=== PATIENT | female | born 1970 | race Two or more races ===

== ENCOUNTER 2020-11-22 14:58 | Emergency (ER) | payer MEDICAID ==
[~2020-11-22] VITALS: Ht 162.6 cm; Wt 86.2 kg
[2020-11-22 16:11] LABS: Basophils # (auto) 0.1 10 ^3/uL (0-0.2); Eosinophils # (auto) 0.1 10 ^3/uL (0-0.8); Monocytes # (auto) 0.7 10 ^3/uL (0-1.3)
[2020-11-22 16:12] LABS: Hematocrit 21.3 % (36.0-46.0); Lymphocytes # (auto) 1.3 10 ^3/uL (0.4-5.4); Lymphocytes % (auto) 15.9 % (10.0-50.0); Mean Corpuscular Hemoglobin 17.2 pg (28.0-32.0); Mean Corpuscular Hgb Conc. 27.9 g/dL (32.0-36.0); Mean Corpuscular Volume 61.6 fL (80.0-100.0); Monocytes % (auto) 8.1 % (0.0-12.0); Nucleated Red Blood Cells % 0.1 %; Platelet Count (auto) 359 10^3/uL (140-450); Red Blood Cells 3.46 10^6/uL (4.0-5.20); White Blood Cell 8.1 10^3/uL (4.4-10.8)
[2020-11-22 16:33] LABS: Albumin 3.2 g/dL (3.4-5.0); Calcium 8.6 mg/dL (8.5-10.1); Potassium 3.9 mmol/L (3.5-5.1)
[2020-11-22 16:35] LABS: Red Cell Distribution Width 20.5 % (11.8-14.3)
[2020-11-22 16:38] LABS: BUN/Creatinine Ratio 7.2; Bilirubin, Total 0.4 mg/dL (0.2-1.0); Total Protein 7.2 g/dL (6.4-8.2)
[2020-11-22 18:54] LABS: INR 1.05 (0.9-1.15); Partial Thromboplastin Time 24.8 sec (23.0-31.2)
[2020-11-22 21:10] VITALS: BP 125/78
[2020-11-22 23:15] VITALS: BP 132/73
[2020-11-22 23:34] VITALS: BP 125/63
[2020-11-23 00:58] VITALS: BP 110/65
[2020-11-23 01:15] VITALS: BP 132/78
== END 2020-11-23 02:00 | disposition home or self-care (01) ==
LOC: ER 15:01
DX: D64.9 Anemia, unspecified (principal); R07.9 Chest pain, unspecified; F41.9 Anxiety disorder, unspecified; F32.9 Major depressive disorder, single episode, unspecified
CPT/HCPCS: 36415; 36430; 71045; 74176; 76856; 80053; 83690; 83735; 85025; 85610; 85730; 86850; 86900; 86901; 86920; 99285; P9016

== ENCOUNTER 2023-11-29 08:26 | Inpatient (IN) | payer MEDICAID ==
[~2023-11-29] VITALS: Ht 162.6 cm; Wt 84.3 kg
[~2023-11-29 08:26] MED LIST: ACET-1304 PO; GABA-1308 PO; IBUP-1456 PO; OMEP20TA PO
[2023-11-29] MEDS ORDERED: ONDANSETRON HCL 4 MG/2 ML VIAL ONE (08:50)
[2023-11-29] MEDS ORDERED: PROPOFOL 10 MG/ML 20 ML IV ONE ×2 (08:51→11:58)
[2023-11-29] MEDS ORDERED: KETOROLAC TROMETH 30 MG/ML 1ML VIAL ONE (08:51)
[2023-11-29] MEDS ORDERED: LIDOCAINE 1% INJ PF 5ML AMP ONE (08:51)
[2023-11-29] MEDS ORDERED: DexAMETHasone SOD PHOS 10MG/1ML VIAL INJ ONE ×2 (08:51→11:56)
[2023-11-29] MEDS ORDERED: GLYCOPYRROLATE 0.2 MG/ML 1ML VIAL ONE (08:51)
[2023-11-29] MEDS ORDERED: KETAMINE 50mg/ML 1ml syringe ONE (08:51)
[2023-11-29] MEDS: ACETAMINOPHEN IV 1000 MG/100ML (10MG/ML) IV ONE (09:45)
[2023-11-29] MEDS: CELECOXIB 100 MG CAP ONE (09:46)
[2023-11-29] MEDS: ACETAMINOPHEN IV 100 ML IV ONE (09:46)
[2023-11-29] MEDS: GABAPENTIN 400 MG CAP ONE (09:46)
[2023-11-29] MEDS: CELECOXIB 100 MG CAP PO ONE (09:50)
[2023-11-29] MEDS: GABAPENTIN 400 MG CAP PO ONE (09:50)
[2023-11-29] MEDS: TRANEXAMIC ACID 20 ML ONE (10:03)
[2023-11-29] MEDS: VANCOMYCIN HCL 1000 MG VL ONE (11:44)
[2023-11-29] MEDS ORDERED: ePHEDrine SULFATE 50 MG/ML AMP ONE (11:47)
[2023-11-29] MEDS ORDERED: fentaNYL CITRATE 100 MCG/2 ML VL ONE (12:36)
[2023-11-29] MEDS ORDERED: ONDANSETRON HCL 4 MG/2 ML VIAL IV PRN ×2 (12:45→13:15)
[2023-11-29 12:55] VITALS: PULSE 92; RESP 14; O2SAT 98
[2023-11-29] MEDS ORDERED: hydrALAZINE HCL 20 MG/ML VL IV PRN (13:15)
[2023-11-29] MEDS ORDERED: LABETALOL HCL 5 MG/ML 4ML SYRINGE IV PRN (13:15)
[2023-11-29] MEDS ORDERED: NALOXONE HCL 0.4 MG/ML VIAL IV PRN (13:15)
[2023-11-29] MEDS ORDERED: fentaNYL CITRATE 100 MCG/2 ML VL IV PRN (13:15)
[2023-11-29] MEDS ORDERED: FLUMAZENIL 0.1 MG/ML INJ 10ML MDV IV PRN (13:15)
[2023-11-29] MEDS ORDERED: ePHEDrine SULFATE 50 MG/ML AMP IV PRN (13:15)
[2023-11-29] MEDS ORDERED: HYDROmorphone HCL 2 MG/ML VL/or syr IV PRN (13:15)
[2023-11-29] MEDS ORDERED: ceFAZolin 2 GM/D5W50ml 50 ML IV SCH (14:00)
[2023-11-29] MEDS: oxyCODONE ER 10 MG TAB PO ONE (14:37)
[2023-11-29] MEDS: oxyCODONE HCL 5MG TAB PO PRN ×2 (14:38→21:58)
[2023-11-29 15:00] VITALS: PULSE 93; RESP 17; O2SAT 98
[2023-11-29 15:12] VITALS: BP 110/58; PULSE 93; RESP 17; TEMP 97.5; O2SAT 98
[2023-11-29 16:02] VITALS: BP 110/58; PULSE 93; RESP 17; TEMP 97.5; O2SAT 98
[2023-11-29] MEDS ORDERED: GABA-1308 PO (16:22)
[2023-11-29] MEDS ORDERED: OMEP-335 PO (16:22)
[2023-11-29 16:45] VITALS: BP 115/62; PULSE 90; RESP 17; TEMP 97.8; O2SAT 98
[2023-11-29] MEDS: PANTOPRAZOLE 40 MG TAB PO SCH (17:32)
[2023-11-29] MEDS: SODIUM CHLORIDE 0.9% 1,000 ML IV SCH (17:33)
[2023-11-29] MEDS: ACETAMINOPHEN 325 MG TAB PO SCH (17:55)
[2023-11-29] MEDS: KETOROLAC TROMETH 30 MG/ML 1ML VIAL IV SCH (17:55)
[2023-11-29] MEDS: ceFAZolin 2 GM/D5W50ml 50 ML IV SCH (19:36)
[2023-11-29 21:36] VITALS: BP 113/59; PULSE 99; RESP 19; TEMP 98.5; O2SAT 93
[2023-11-29] MEDS: PREGABALIN 25 MG CAP PO SCH (21:57)
[2023-11-30] VITALS (7 sets, daily range): BP systolic 80–106; BP diastolic 39–62; PULSE 76–98; RESP 17–20; TEMP 98–98.6; O2SAT 95–97
[2023-11-30 07:13] LABS: Calcium 9.4 mg/dL (8.7-10.4); Chloride 107 mmol/L (98-107); Potassium 4.3 mmol/L (3.5-5.1); Sodium 137 mmol/L (136-145)
[2023-11-30 07:14] LABS: Anion Gap 6 (5-15); Carbon Dioxide 24 mmol/L (20-30)
[2023-11-30 07:19] LABS: BUN/Creatinine Ratio 18.5 (10.0-20.0); Blood Urea Nitrogen 12 mg/dL (9-23); Glucose 154 mg/dL (74-106)
[2023-11-30 07:23] LABS: Basophils # (auto) 0 10 ^3/uL (0-0.2); Basophils % (auto) 0.1 % (0.0-2.0); Eosinophils # (auto) 0 10 ^3/uL (0-0.8); Hematocrit 28.9 % (36.0-46.0); Hemoglobin 9.8 g/dL (12.2-16.2); Lymphocytes # (auto) 1.1 10 ^3/uL (0.4-5.4); Lymphocytes % (auto) 9.6 % (10.0-50.0); Mean Corpuscular Hemoglobin 29.1 pg (28.0-32.0); Mean Corpuscular Hgb Conc. 33.9 g/dL (32.0-36.0); Mean Corpuscular Volume 85.7 fL (80.0-100.0); Monocytes # (auto) 0.6 10 ^3/uL (0-1.3); Monocytes % (auto) 5.6 % (0.0-12.0); Neutrophils # (auto) 9.3 10 ^3/uL (1.6-8.6); Neutrophils % (auto) 84.7 % (37.0-80.0); Red Blood Cells 3.38 10^6/uL (4.0-5.20); Red Cell Distribution Width 13.1 % (11.8-14.3); White Blood Cell 10.9 10^3/uL (4.4-10.8)
[2023-11-30] MEDS: APIXABAN 2.5 MG TAB PO SCH (09:54)
[2023-11-30] MEDS: oxyCODONE HCL 5MG TAB PO PRN (09:54)
== END 2023-11-30 14:00 | disposition home or self-care (01) | DRG 324 ==
LOC: SUR 08:26 → OVERFLOW 12:40 → EAST 14:55
PROVIDERS: ADMIT Orthopaedic Surgery; ATTEND Orthopaedic Surgery
PROC: 0SRB06Z Replacement of Left Hip Joint with Oxidized Zirconium on Polyethylene Synthetic Substitute, Open Approach (ICD-10-PCS; principal; 2023-11-29 10:48)
DX: M16.12 Unilateral primary osteoarthritis, left hip (principal)
CPT/HCPCS: 36415; 72170; 73501; 80048; 85025; 86850; 86900; 86901; 97110; 97116; 97163; 97530; A4565; G0378; J0131; J1100; J1885; J2405; J2704

== ENCOUNTER 2024-01-02 21:09 | Emergency (ER) | payer MEDICAID ==
[~2024-01-02] VITALS: Ht 157.5 cm; Wt 90.0 kg
[~2024-01-02 21:09] MED LIST changes: +OMEP-335 PO; -OMEP20TA PO
[2024-01-02] MEDS: ONDANSETRON HCL 4 MG/2 ML VIAL IV ONE (21:32)
[2024-01-02] MEDS: MORPHINE SULFATE 4 MG/ML SYR/VIAL IV ONE ×3 (21:36→23:35)
[2024-01-02 21:55] LABS: Basophils # (auto) 0.1 10 ^3/uL (0-0.2); Basophils % (auto) 0.9 % (0.0-2.0); Eosinophils # (auto) 0.3 10 ^3/uL (0-0.8); Eosinophils % (auto) 3.1 % (0.0-7.0); Hematocrit 36.8 % (36.0-46.0); Hemoglobin 12.2 g/dL (12.2-16.2); Lymphocytes # (auto) 2.8 10 ^3/uL (0.4-5.4); Mean Corpuscular Hemoglobin 27.7 pg (28.0-32.0); Mean Corpuscular Hgb Conc. 33.1 g/dL (32.0-36.0); Mean Corpuscular Volume 83.7 fL (80.0-100.0); Monocytes # (auto) 0.6 10 ^3/uL (0-1.3); Monocytes % (auto) 6.7 % (0.0-12.0); Neutrophils % (auto) 57.3 % (37.0-80.0); Red Cell Distribution Width 14.1 % (11.8-14.3); White Blood Cell 8.8 10^3/uL (4.4-10.8)
[2024-01-02 22:00] VITALS: PULSE 83; RESP 18; TEMP 97.6; O2SAT 99
[2024-01-02 22:07] LABS: Chloride 106 mmol/L (98-107); Sodium 139 mmol/L (136-145)
[2024-01-02 22:08] LABS: Anion Gap 8 (5-15); Carbon Dioxide 25 mmol/L (20-30)
[2024-01-02 22:09] LABS: Calcium 10.1 mg/dL (8.7-10.4)
[2024-01-02 22:14] LABS: BUN/Creatinine Ratio 15.7 (10.0-20.0); Blood Urea Nitrogen 11 mg/dL (9-23); Glucose 101 mg/dL (74-106)
[2024-01-02] MEDS: SODIUM CHLORIDE 0.9% 1,000 ML IVB ONE (22:21)
[2024-01-02] MEDS: SODIUM CHLORIDE 0.9% 1,000 ML IV ONE (22:45)
[2024-01-03] MEDS: PROPOFOL 10 MG/ML 20 ML IV ONE ×2 (00:27→01:44)
[2024-01-03 02:00] VITALS: BP 109/59; PULSE 93; RESP 14; O2SAT 97
[2024-01-03] MEDS ORDERED: ACET-1304 PO (02:14)
[2024-01-03] MEDS ORDERED: IBU600T PO (02:14)
[2024-01-03] MEDS ORDERED: CYCL-611 PO (02:14)
[2024-01-03] MEDS: ONDANSETRON HCL 4 MG/2 ML VIAL IV ONE (02:51)
== END 2024-01-03 02:59 | disposition home or self-care (01) ==
LOC: EDBD 21:09 → ER 21:09
DX: S73.005A Unspecified dislocation of left hip, initial encounter (principal); W07.XXXA Fall from chair, initial encounter; Y93.89 Activity, other specified; Y92.89 Other specified places as the place of occurrence of the external cause; Y99.8 Other external cause status
CPT/HCPCS: 36415; 73501; 73502; 80048; 85025; 96361; 96374; 96375; 96376; 99285; J2270; J2405; J2704; J7030

== ENCOUNTER 2025-04-14 09:56 | Emergency (ER) | payer BC, MEDICAID, OTHER ==
[~2025-04-14] VITALS: Ht 162.6 cm; Wt 75.7 kg
[~2025-04-14 09:56] MED LIST changes: +CYCL-611 PO; +IBU600T PO
--- NOTE | 2025-04-14 11:09 | ED.PDOC ---
General HPI Comments 55 year old female presents to the ED with a chief complaint of dysuria onset 1 day. Patient states she was diagnosed with UTI recently, was prescribed antibiotics, finished course yesterday. For the past day, she has been experiencing dysuria with burning sedation, mid back pain radiates to bilateral flank pain. PMHx anxiety, depression. Denies nausea, vomiting, diarrhea, hematuria, hematemesis, dizziness. No other symptoms or modifying factors pre sent at this time. Chief Complaint: Urinary Time Seen by MD: 11:05 Reviewed notes: Medications, Allergies Allergies: Coded Allergies: NO KNOWN ALLERGIES (Unverified , 11/22/20) Home Meds Active Scripts Cyclobenzaprine HCl (Cyclobenzaprine Hydrochlo) 10 Mg Tab, 10 MG PO TID, #20 TAB Prov:GERMAN AIKEN MD 01/03/24 Acetaminophen (Tylenol Extra Strength) 500 Mg Tab, 1000 MG PO TID, #20 TAB Prov:GERMAN AIKEN MD 01/03/24 Ibuprofen Micronized (MOTRIN TABLET) 600 Mg Tb, 600 MG PO TID PRN, #40 TAB *Black box warning-NSAIDS can increase risk of MS & hypertension, GI irritation, ulceration, bleed, perferation. Do not use post cardiac surgery. Use short duration/lowest effective dose. Prov:GERMAN AIKEN MD 01/03/24 Reported Medications Omeprazole (Omeprazole) 20 Mg Tab, 40 MG PO DAILY, TAB 11/29/23 Gabapentin (Gabapentin) 100 Mg Cap, 400 MG PO QPM 11/29/23 Acetaminophen (Tylenol Extra Strength) 500 Mg Tab, 2 TAB PO PRN, TAB 11/27/23 Ibuprofen (Ibuprofen) 800 Mg Tab, 800 MG PO Q8HP, TAB 11/27/23 Information Source: Patient Mode of Arrival: Ambulatory Severity: Moderate Timing: Days Duration: Since onset Prehospital treatment: None Onset: Spontaneous Symptoms: Dysuria History of: UTI Location: (R) Flank, (L)Flank Modifying factors: None associated signs and symptoms: Flank Pain, Back Pain, Dysuria Past Medical History PAST MEDICAL HISTORY: Anxiety, Depression Surgical History: Family History Family History: Family hx of HTN Social History Smoker: Non-Smoker Alcohol: Denies ETOH Use Drugs: Denies Drug Use Lives In: Home Constitutional: denies: chills, diaphoresis, fatigue, fever, malaise, sweats, weakness, others EENTM: denies: blurred vision, double vision, ear bleeding, ear discharge, ear drainage, ear pain, ear ringing, eye pain, eye redness, hearing loss, mouth pain, mouth swelling, nasal discharge, nose bleeding, nose congestion, nose pain, photophobia, tearing, throat pain, throat swelling, voice changes, others Respiratory: denies: cough, hemoptysis, orthopnea, SOB at rest, shortness of breath, SOB with excertion, stridor, wheezing, others Cardiovascular: denies: chest pain, dizzy spells, diaphoresis, Dyspnea on exert ion, edema, irregular heart beat, left arm pain, lightheadedness, palpitations, PND, syncope, others Gastrointestinal: denies: abdomen distended, abdominal pain, blood streaked bowels, constipated, diarrhea, dysphagia, difficulty swallowing, hematemesis, melena, nausea, poor appetite, poor fluid intake, rectal bleeding, rectal pain, vomiting, others Genitourinary: reports: dysuria, flank pain; denies: abnormal vagina bleeding, burning, dyspareunia, frequency, hematuria, incontinence, pain, , vagina discharge, urgency, others Neurological: denies: dizziness, fainting, headache, left sided numbness, left sided weakness, numbness, paresthesia, pre-existing deficit, right sided numbness, right sided weakness, seizure, speech problems, tingling, tremors, weakness, others Musculoskeletal: reports: back pain; denies: gout, joint pain, joint swelling, muscle pain, muscle stiffness, neck pain, others Integumetry: denies: bruises, change in color, change in hair/nails, dryness, laceration, lesions, lumps, rash, wounds, others Allergic/Immunocompromised: denies: Difficulty Healing, Frequent Infections, Hives, Itching, others Hematologic/Lymphatic: denies: anemia, blood clots, easy bleeding, easy bruising, swollen glands, others Endocrine: denies: excessive hunger, excessive sweating, excessive thirst, excessive urination, flushing, intolerance to cold, intolerance to heat, unexplained weight gain, unexplained weight loss, others Psychiatric: denies: anxiety, bipolar disorder, depression, hopeless, panic disorder, schizophrenia, sleepless, suicidal, others All Other Systems: Reviewed and Negative Physical Exam General Appearance: No Apparent Distress, Obese HEENT: Normal ENT Inspection, PERRL/EOMI, Pharynx Normal, TMs Normal Neck: Full Range of Motion, Non-Tender, Normal, Normal Inspection Respiratory: Chest Non-Tender, Lungs Clear, No Accessory Muscle Use, No Respiratory Distress, Normal Breath Sounds Cardiovascular: No Edema, No JVD, No Murmur, No Gallop, Normal Peripheral Pulses, Regular Rate/Rhythm Breast Exam: Deferred Gastrointestinal: No Organomegaly, Non Tender, No Pulsatile Mass, Normal Bowel Sounds, Soft Genitalia: Deferred Pelvic: Deferred Rectal: Deferred Extremities: No calf tenderness, Normal capillary refill, Normal inspection, Normal range of motion, Non-tender, No pedal edema Musculoskeletal : Location: Bilateral Extremity Location: Back Apperance: Limited ROM, Tenderness: Moderate, Other (Radiculitis left leg) Neurologic: Alert, 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 Was a procedure done?: No Differential Diagnosis Kidney stone (Female): DJD, Musculoskeletal pain, Pyelonephritis, Strain Kidney stone (Male): N/A Penile/Scrotal: N/A Urinary Problem (Male): N/A Urinary Problem (Female): Pyelonephritis, UTI X-Ray, Labs, Meds, VS Vital Signs Date Time Temp Pulse Resp B/P (MAP) Pulse Ox O2 Delivery O2 Flow Rate FiO2 04/14/25 12:20 101 18 95 Room Air 04/14/25 11:45 100.3 101 18 100/65 (77) 95 100.3 04/14/25 09:58 98.8 105 19 122/76 98 98.8 Lab Test 04/14/25 10:07 Range/Units Urine Color Yellow Yellow Urine Clarity Clear Clear Urine pH 6.5 5.0-9.0 Urine Specific [place] 1.016 1.001-1.035 Urine Protein Negative Negative Urine Ketones 1+ H Negative Urine Blood 1+ H Negative /uL Urine Nitrite Negative Negative Urine Bilirubin Negative Negative Urine Urobilinogen Normal Negative mg/dL Urine Leukocyte Esterase Negative Negative /uL Urine RBC 28 0 - 4 /hpf Urine Microscopic WBC 2 0-5 /HPF Urine Squamous Epithelial Cells Few <5 /hpf Urine Bacteria None seen None Seen /hpf Urine Mucus Few None Seen Urine Glucose Normal Normal mg/dL X-Ray, Labs, Meds, VS Comment Urine is not infected but shows 2+ blood patient will be treated with a cystitis As far as her back patient has a back sprain with radiculitis to the left leg a nd will be treated as such Time of 1ST Reevaluation: 11:35 Reevaluation 1ST: Unchanged Time of 2ND Reevaluation: 12:35 Reevaluation 2ND: Unchanged Consultation: PCP Patient Education/Counseling: Diagnosis, Treatment, Prognosis, Need For Follow Up Family Education/Counseling: Diagnosis, Treatment, Prognosis, Need For Follow Up, No Family Present SEPSIS Sepsis Screen Date sepsis recognized/suspect: Apr 14, 2025 Time Sepsis recognized/suspect: 957 Recent Procedure: No On Antibiotic Therapy: No Respiratory Rate >20: No Heart Rate >90: Yes Temp<36 C (96.8 F) or >38.3 C: No SBP <90 or MAP <65 mmHG: No New Acute Mental Status Change: No Is the patient on CPAP, BIPAP,: No Vital Signs Date Time Temp Pulse Resp B/P (MAP) Pulse Ox O2 Delivery O2 Flow Rate FiO2 04/14/25 12:20 101 18 95 Room Air 04/14/25 11:45 100.3 101 18 100/65 (77) 95 100.3 04/14/25 09:58 98.8 105 19 122/76 98 98.8 Departure 1 Departure Time of Disposition: 12:35 Impression: Primary Impression: Cystitis Additional Impression: Low back strain Qualified Codes: S39.012A - Strain of muscle, fascia and tendon of lower back, initial encounter Disposition: HOME / SELF CARE / HOMELESS Condition: Fair Additional Instructions: Follow up with your doctor e-Prescriptions Diclofenac Potassium (Diclofenac Potassium) 50 Mg Tab 1 TAB PO TIDP for 10 Days, #30 TAB Prov: ALEX AZAR MD 04/14/25 Cyclobenzaprine Hcl (Cyclobenzaprine Hcl) 10 Mg Tab 10 MG PO TID PRN for 10 Days, #30 TAB Prov: ALEX AZAR MD 04/14/25 Phenazopyridine HCl (Phenazopyridine Hydrochlo) 200 Mg Tab 200 MG PO BID for 5 Days, #10 TAB Prov: ALEX AZAR MD 04/14/25 Discharged With: Self Critical Care Note Critical Care Time?: No Stability Stability form required: No Heart Score Heart Score: Heart Score Response (Comments) Value History N/A 0 EKG N/A 0 Age 45-64 1 Risk Factors No known risk factors 0 Troponin N/A 0 Total 1 I personally scribed for ALEX AZAR MD ([email or web address]) on 04/14/25 at 11:09. Electronically submitted by Sara Sadler ([email or web address]). ALEX AZAR MD Apr 14, 2025 11:09
[2025-04-14 11:45] VITALS: BP 100/65; TEMP 100.3
[2025-04-14 12:13] LABS: Urine Protein, UAD Negative (Negative)
[2025-04-14 12:20] VITALS: PULSE 101; RESP 18; O2SAT 95
[2025-04-14] MEDS ORDERED: DICL50TA2 PO (12:40)
[2025-04-14] MEDS ORDERED: PHEN-922 PO (12:40)
[2025-04-14] MEDS ORDERED: CYCL-839 PO (12:40)
== END 2025-04-14 12:49 | disposition home or self-care (01) ==
LOC: ER 09:56
DX: S39.012A Strain of muscle, fascia and tendon of lower back, initial encounter (principal); N30.90 Cystitis, unspecified without hematuria; X58.XXXA Exposure to other specified factors, initial encounter; Y93.89 Activity, other specified; Y92.89 Other specified places as the place of occurrence of the external cause; Y99.8 Other external cause status
CPT/HCPCS: 81001